=== PATIENT | female | born 2005 | race Caucasian/White ===

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

== ENCOUNTER 2025-05-12 19:15 | Emergency (ER) | payer MEDICAID | END 2025-05-12 20:46 | disposition home or self-care (01) | LOC: MW.ED 19:15 | DX: K08.89 Other specified disorders of teeth and supporting structures (principal); Z79.899 Other long term (current) drug therapy | CPT/HCPCS: 99282; A9270 ==